=== PATIENT | female | born 1940 | race Caucasian/White ===

== ENCOUNTER 2017-05-16 12:37 | Emergency (ER) | payer MEDICARE, MEDICAID ==
[~2017-05-16] VITALS: Ht 165.1 cm; Wt 60.0 kg
[~2017-05-16 12:37] MED LIST: ADVA100A INH; ARIC10TA PO; FOSA35TA2 PO
[2017-05-16 13:09] VITALS: BP 135/65; PULSE 61; RESP 16; TEMP 98; O2SAT 98
[2017-05-16 13:56] LABS: AUTOMATED NEUTROPHIL # 3.7 TH/MM3 (1.8-7.7); BASOPHIL % 0.4 % (0.0-2.0); EOSINOPHIL # 0.2 TH/MM3 (0-0.4); EOSINOPHIL % 2.4 % (0.0-4.0); HEMO FLAGS DIFF FINAL; LYMPH % 29.5 % (9.0-44.0); LYMPHOCYTE # 1.9 TH/MM3 (1.0-4.8); MEAN CELL VOLUME 92.9 FL (80.0-100.0); MEAN CORPUSCULAR HEMOGLOBIN 30.2 PG (27.0-34.0); MEAN CORPUSCULAR HGB CONC 32.5 % (32.0-36.0); MONO % 9.6 % (0.0-8.0); NEUT % 58.1 % (16.0-70.0); PLATELET COUNT 211 TH/MM3 (150-450); RED CELL DISTRIBUTION WIDTH 13.6 % (11.6-17.2); WHITE BLOOD COUNT 6.3 TH/MM3 (4.0-11.0)
--- NOTE | 2017-05-16 14:08 | PD ---
HPI Chief Complaint: Psychiatric Symptoms Time Seen by Provider: 14:05 Travel History International Travel<30 days: No Contact w/Intl Traveler<30days: No Traveled to known affect area: No History of Present Illness HPI 77-year-old female that presents to the ED for evaluation of worsening dementia. Patient was brought here from assisted living facility in [facility] ED for evaluation of this. Unclear as to why patient was brought here instead of a different facility as patient is not a [facility] act. History is limited because of patient's severe dementia. Patient doesn't know where she is. She denies any complaints. She apparently has been agitated with staff. She is apparently been compliant with her medications. She has no allergies to medications. No sign of trauma. ED nurse did mention to me that there might be concerning for UTI. She has never been here before. No allergies to medication. PFSH Past Medical History Cancer: Yes (BREAST) Cardiovascular Problems: Yes (MURMUR) Diabetes: No Glaucoma: Yes (CORRECTED WITH LASER SURGERY) Hepatitis: No Hiatal Hernia: No Hypertension: No Respiratory: Yes (EMPHYSEMA) Thyroid Disease: No Past Surgical History Surgical History: Unable to Obtain Abdominal Surgery: No Cardiac Surgery: No Ear Surgery: No Endocrine Surgery: No Eye Surgery: Yes (BILAT CATARACT ) Genitourinary Surgery: Yes (BLADDER LIFT) Gynecologic Surgery: Yes (HYSTERECTOMY) Oral Surgery: No Pacemaker: No Thoracic Surgery: No Other Surgery: Yes Social History Alcohol Use: No Tobacco Use: Yes (1 PK/DAY) Allergies-Medications (Allergen,Severity, Reaction): Coded Allergies: No Known Allergies (Verified , 03/08/10) Reported Meds & Prescriptions Reported Meds & Active Scripts Active Macrobid (Nitrofurantoin Monohydrate Macrocrystals) 100 Mg Capsule 100 Mg PO BID 7 Days Reported Fosamax (Alendronate Sodium) 35 Mg Tab 35 Mg PO WEEKLY Aricept (Donepezil HCl) 10 Mg Tab 10 Mg PO HS Advair Diskus 100/50 (Salmeterol Xinafoate/Fluticasone) 100 Mcg/50 Mcg Inhp 1 Puff INH BID Review of Systems Except as stated in HPI: all other systems reviewed are Neg Physical Exam Narrative GENERAL: SKIN: Warm and dry. HEAD: Atraumatic. Normocephalic. EYES: Pupils equal and round. No scleral icterus. No injection or drainage. ENT: No nasal bleeding or discharge. Mucous membranes pink and moist. Tongue is midline. No uvula deviation. NECK: Trachea midline. No JVD. CARDIOVASCULAR: Regular rate and rhythm. No murmurs, S3, S4. RESPIRATORY: No accessory muscle use. Clear to auscultation. Breath sounds equal bilaterally. GASTROINTESTINAL: Abdomen soft, non-tender, nondistended. Hepatic and splenic margins not palpable. MUSCULOSKELETAL: Extremities without clubbing, cyanosis, or edema. No obvious deformities. Full range of motion of the upper and lower extremities bilaterally. 2+ pulses bilaterally. NEUROLOGICAL: Awake and alert. No obvious cranial nerve deficits. Motor grossly within normal limits. Five out of 5 muscle strength in the arms and legs. Normal speech. PSYCHIATRIC: Appropriate mood and affect; insight and judgment normal. Data Data Last Documented VS Vital Signs Date Time Temp Pulse Resp B/P Pulse Ox O2 Delivery O2 Flow Rate FiO2 05/16/17 13:09 98.0 61 16 135/65 98 Orders Complete Blood Count With Diff (05/16/17 13:04) Comprehensive Metabolic Panel (05/16/17 13:04) Psych Screen (05/16/17 13:04) Drug Screen, Random Urine (05/16/17 13:04) Alcohol (Ethanol) (05/16/17 13:04) Urinalysis - C+S If Indicated (05/16/17 13:18) Urine Culture (05/16/17 13:33) Ceftriaxone Inj (Rocephin Inj) (05/16/17 14:45) Labs Laboratory Tests Test 05/16/17 05/16/17 13:33 13:37 Urine Color YELLOW Urine Turbidity CLOUDY Urine pH 7.5 Urine Specific Dickey 1.015 Urine Protein 30 mg/dL Urine Glucose (UA) NEG mg/dL Urine Ketones NEG mg/dL Urine Occult Blood SMALL Urine Nitrite POS Urine Bilirubin NEG Urine Urobilinogen LESS THAN 2.0 MG/DL Urine Leukocyte Esterase LARGE Urine RBC 7 /hpf Urine WBC 40 /hpf Urine WBC Clumps RARE Urine Squamous Epithelial 7 /hpf Cells Urine Amorphous Sediment SMALL Urine Bacteria MANY /hpf Urine Hyaline Casts 3 /lpf Urine Mucus MOD /lpf Microscopic Urinalysis Comment CULTURE INDICATED Urine Opiates Screen NEG Urine Barbiturates Screen NEG Urine Amphetamines Screen NEG Urine Benzodiazepines Screen NEG Urine Cocaine Screen NEG Urine Cannabinoids Screen NEG White Blood Count 6.3 TH/MM3 Red Blood Count 4.20 MIL/MM3 Hemoglobin 12.7 GM/DL Hematocrit 39.0 % Mean Corpuscular Volume 92.9 FL Mean Corpuscular Hemoglobin 30.2 PG Mean Corpuscular Hemoglobin 32.5 % Concent Red Cell Distribution Width 13.6 % Platelet Count 211 TH/MM3 Mean Platelet Volume 7.4 FL Neutrophils (%) (Auto) 58.1 % Lymphocytes (%) (Auto) 29.5 % Monocytes (%) (Auto) 9.6 % Eosinophils (%) (Auto) 2.4 % Basophils (%) (Auto) 0.4 % Neutrophils # (Auto) 3.7 TH/MM3 Lymphocytes # (Auto) 1.9 TH/MM3 Monocytes # (Auto) 0.6 TH/MM3 Eosinophils # (Auto) 0.2 TH/MM3 Basophils # (Auto) 0.0 TH/MM3 CBC Comment DIFF FINAL Differential Comment Sodium Level 143 MEQ/L Potassium Level 3.6 MEQ/L Chloride Level 107 MEQ/L Carbon Dioxide Level 30.2 MEQ/L Anion Gap 6 MEQ/L Blood Urea Nitrogen 12 MG/DL Creatinine 0.75 MG/DL Estimat Glomerular Filtration 75 ML/MIN Rate Random Glucose 79 MG/DL Calcium Level 8.5 MG/DL Total Bilirubin 0.1 MG/DL Aspartate Amino Transf 7 U/L (AST/SGOT) Alanine Aminotransferase 11 U/L (ALT/SGPT) Alkaline Phosphatase 64 U/L Total Protein 7.3 GM/DL Albumin 3.1 GM/DL Ethyl Alcohol Level LESS THAN 3 MG/DL MDM Medical Decision Making Medical Screen Exam Complete: Yes Emergency Medical Condition: Yes Medical Record Reviewed: Yes Interpretation(s) UA shows UTI CBC & BMP Diagram 05/16/17 13:37 Differential Diagnosis UTI versus dementia versus depression versus anxiety versus worsening dementia versus altered mental status Narrative Course 77-year-old female that presents to the ED for evaluation of worsening dementia. Patient was properly examined and was found to have signs and symptoms consistent with dementia with agitation. Labs were ordered. There is high suspicion for UTI. Labs showed UTI. At this time patient will be treated for this with Macrobid. My attending Dr Palomino was made aware of all findings and recommends giving IV ceftriaxone here and have the psych evaluation. If psych believes the patient can be sent back and patient can be discharged with prescription for Macrobid. Patient was medically cleared. Okay to be seen by psych.Mental health screening was discussed with the patient. 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
[2017-05-16 14:09] LABS: BACTERIA, URINE MANY /hpf; BLOOD, URINE SMALL (NEG); GLUCOSE,URINE NEG (NEG); HYALINE CAST, URINE 3 /lpf (RARE); KETONE, URINE NEG (NEG); MUCUS URINE MOD /lpf (OCC); NITRITE,URINE POS (NEG); PH, URINE 7.5 (5.0-8.5); SQUAMOUS EPITHELIAL CELL URINE 7 /hpf (0-5); URINE COLOR YELLOW (YELLW/STRAW)
[2017-05-16 14:10] LABS: COMMENT (UR) CULTURE INDICATED; CULTURE IF INDICATED CULTURE INDICATED
[2017-05-16 14:11] LABS: ALT (GPT) 11 U/L (10-53); ANION GAP 6 MEQ/L (5-15); AST (GOT) 7 U/L (15-37); BICARBONATE 30.2 MEQ/L (21.0-32.0); BLOOD UREA NITROGEN 12 MG/DL (7-18); CHLORIDE 107 MEQ/L (98-107); GLOMERULAR FILTRATION RATE 75 ML/MIN (>89); POTASSIUM 3.6 MEQ/L (3.5-5.1); SODIUM (NA) 143 MEQ/L (136-145)
[2017-05-16 14:13] LABS: ALKALINE PHOSPHATASE 64 U/L (45-117); TOTAL BILIRUBIN ADULT 0.1 MG/DL (0.2-1.0)
[2017-05-16 14:15] LABS: AMPHETAMINE, URINE NEG (NEG); BARBITURATES, URINE NEG (NEG); COCAINE, URINE NEG (NEG)
[2017-05-16] MEDS ORDERED: BACT800T5 PO (14:37)
[2017-05-16] MEDS ORDERED: MACR100C2 PO (14:38)
[2017-05-16] MEDS ORDERED: OXYBXL10 PO (14:40)
[2017-05-16] MEDS ORDERED: SERO100T PO (14:40)
[2017-05-16] MEDS ORDERED: cefTRIAXone INJ 1,000 MG in SODIUM CHLORIDE 0.9% INJ 100 ML IV ONE (14:45)
[2017-05-16] MEDS ORDERED: LIDOCAINE HCL 1% PF 30 ML VIAL XX ONE (15:00)
[2017-05-16] MEDS ORDERED: DEPA250T2 PO (15:05)
[2017-05-16] MEDS ORDERED: ARIC10TA2 PO (15:05)
[2017-05-16] MEDS ORDERED: BUSP10TA PO (15:05)
[2017-05-16] MEDS ORDERED: GUAN1TAB PO (15:05)
[2017-05-16] MEDS ORDERED: CYCL5TAB PO (15:05)
== END 2017-05-16 19:43 | disposition home or self-care (01) ==
LOC: NEDAMB 12:37
DX: R45.1 Restlessness and agitation (principal); N30.90 Cystitis, unspecified without hematuria; B96.20 Unspecified Escherichia coli [E. coli] as the cause of diseases classified elsewhere; F03.90 Unspecified dementia, unspecified severity, without behavioral disturbance, psychotic disturbance, mood disturbance, and anxiety; J43.9 Emphysema, unspecified; F17.200 Nicotine dependence, unspecified, uncomplicated; Z79.899 Other long term (current) drug therapy; Z85.3 Personal history of malignant neoplasm of breast
CPT/HCPCS: 80053; 80307; 81001; 85025; 87077; 87086; 87186; 96372; 99284; J0696